=== PATIENT | male | born 1955 | race Caucasian/White ===

== ENCOUNTER → 2017-05-08 | Outpatient (CLI) | payer BC ==
--- NOTE | 2017-05-08 17:32 | Diagnostic Imaging Report ---
Indication: Cough Technique: 2 views of the chest Comparison: None Findings: Bilateral lower lung nodular opacities likely reflect nipple shadows. There are some atelectasis in the left infrahilar region. Lungs are somewhat hyperinflated. Lungs and pleural spaces are clear. Normal heart size. Impression: Mild hyperinflation, possibly indicating COPD changes No acute process Left perihilar subsegmental atelectasis
== END | disposition home or self-care (01) ==
LOC: RAD 15:40
DX: R06.02 Shortness of breath (principal); R05 Cough; R06.2 Wheezing; J98.11 Atelectasis
CPT/HCPCS: 71046